=== PATIENT | male | born 1960 ===

== ENCOUNTER 2021-01-28 13:37 | Emergency (ER) | payer OTHER ==
[2021-01-28 14:52] LABS: CORONAVIRUS 2019 SARS-COV-2 NEGATIVE (NEGATIVE); INFLUENZA A NAA NEGATIVE (NEGATIVE)
[2021-01-28 16:42] LABS: BASOPHIL 0.8 % (0-2); HCT 44.7 % (42.0-52.0); HGB 14.9 g/dl (13.2-18.0); LYMPHOCYTE 27.6 % (15-48); MCH 27.6 pg (25.0-31.0); MCHC 33.3 g/dL (32.0-36.0); MCV 82.8 fL (78.0-100.0); MONOCYTE 5.8 % (0-12); MPV 10.6 fL (6.0-9.5); PLT 127 K/uL (150-400); RDW 14.8 % (11.5-14.0)
[2021-01-28 16:44] LABS: WBC 2.57 K/uL (4.0-10.5)
[2021-01-28 17:17] LABS: BILIRUBIN - TOTAL 0.5 mg/dL (0.2-1.0); C-REACTIVE PROTEIN 0.8 mg/dL (<=0.90); CREATININE 1.31 mg/dL (0.67-1.17); GLOBULIN (CALCULATION) 3.8 g/dL; POTASSIUM 3.9 mmol/L (3.5-5.1); TOTAL PROTEIN 6.8 g/dL (6.4-8.2)
== END 2021-01-28 19:47 | disposition home or self-care (01) ==
LOC: FER 13:37
PROVIDERS: Internal Medicine
DX: E11.65 Type 2 diabetes mellitus with hyperglycemia (principal); D72.819 Decreased white blood cell count, unspecified; R79.89 Other specified abnormal findings of blood chemistry; R94.5 Abnormal results of liver function studies; I11.9 Hypertensive heart disease without heart failure; Z20.822 Contact with and (suspected) exposure to COVID-19; Z88.0 Allergy status to penicillin
CPT/HCPCS: 36415; 71045; 80053; 82550; 83036; 83690; 84443; 84484; 85025; 86140; 93005; U0002